=== PATIENT | female | born 2000 | race Caucasian/White ===

== ENCOUNTER 2019-09-08 15:26 | Outpatient (REF) | payer BC, SELFPAY ==
[2019-09-09 14:30] LABS: Chlamydia Result Negative (Negative)
[2019-09-09 16:23] LABS: GC Result Negative (Negative)
== END 2019-09-08 15:46 ==
LOC: LBN 15:26
PROVIDERS: PCP Pediatrics; Visit Provider Nurse Practitioner Family
DX: Z11.3 Encounter for screening for infections with a predominantly sexual mode of transmission (principal); N89.8 Other specified noninflammatory disorders of vagina
CPT/HCPCS: 87491; 87591

== ENCOUNTER 2019-09-10 15:56 | Outpatient (REF) | payer BC, SELFPAY ==
[2019-09-13 14:45] LABS: HSV 1 DNA Result Positive (Negative)
[2019-09-13 15:22] LABS: HSV 2 DNA Result Negative (Negative)
== END 2019-09-10 16:16 ==
LOC: LBN 15:56
PROVIDERS: PCP Pediatrics; Visit Provider Nurse Practitioner Pediatrics
DX: N89.8 Other specified noninflammatory disorders of vagina (principal)
CPT/HCPCS: 87529; 87480; 87510; 87660

== ENCOUNTER 2020-05-03 02:53 | Outpatient (CLI) | payer BC, SELFPAY ==
[2020-05-03 09:51] LABS: Bilirubin Negative (Negative); Blood Negative (Negative); Clarity Clear (Clear); Glucose Negative (Negative); Ketones Negative (Negative); Leukocyte Esterase Negative (Negative); Nitrite Negative (Negative); Specific Gravity 1.015 (1.005-1.025); Urobilinogen 0.2 EU/dL (Up TO 0.2)
[2020-05-03 10:36] LABS: ALT 29 U/L (14-59); AST 16 U/L (15-37); Albumin 3.8 g/dL (3.4-5.0); Alkaline Phosphatase 61 U/L (46-116); Anion Gap 10.1 mmol/L (3-11); BUN 8 mg/dL (7-18); Bilirubin, Total 0.5 mg/dL (0.2-1.0); CO2 26.9 mmol/L (21.0-32.0); CREATININE 0.87 mg/dL (0.55-1.02); Calcium 8.9 mg/dL (8.5-10.1); Chloride 105 mmol/L (98-107); Glucose 78 mg/dL (74-106); Potassium 4.3 mmol/L (3.5-5.1); Sodium 142 mmol/L (136-145); Total Protein 6.8 g/dL (6.4-8.2)
[2020-05-03 10:40] LABS: Creatinine,Urine < 13.0 mg/dL
[2020-05-04 08:36] LABS: Calcium (Random Urine) 1.1 mg/dL (See Note)
[2020-05-05 09:28] LABS: Antistrep-O Titer 158 IU/mL (0 - 530)
== END 2020-05-03 03:13 ==
PROVIDERS: PCP Pediatrics; Visit Provider Nurse Practitioner Pediatrics
DX: R31.9 Hematuria, unspecified (principal)
CPT/HCPCS: 36415; 80053; 81003; 82340; 82565; 86060

== ENCOUNTER 2020-09-21 13:45 | Outpatient (REF) | payer BC, SELFPAY ==
--- NOTE | 2020-09-21 13:00 | PAPFT_PTH ---
PATIENT: Kristofer Sadler LOC: [facility] U#:[id number] AGE/SX: 20/F ROOM: RE09/21/[address]: MARIA VICTORIA Miguel : 2000 BED: DIS: 09/21/2020 SPEC #: [id number] RECD: 09/21/20 17:50 STATUS: LYDIA REQ #: [id number] LISA: 09/21/20 13:[address]: Marielos Workman DEPT: [facility] Cytology RECD BY: Jillian Ortiz ENTERED: 09/21/20 17:50 SP TYPE: PAPFT OTHR DR: Jermaine Wallis MD Tissues: 1 - CX/ENDOCX FOR PAP SMEARS Procedures: PAP THIN PREP/[facility] Screening Comments: [id number]
== END 2020-09-21 14:05 ==
LOC: LBN 13:45
PROVIDERS: PCP Pediatrics; Visit Provider Nurse Practitioner Family
DX: Z12.4 Encounter for screening for malignant neoplasm of cervix (principal)
CPT/HCPCS: 88142

== ENCOUNTER 2021-11-26 15:29 | Outpatient (REF) | payer BC, SELFPAY ==
--- NOTE | 2021-11-26 15:15 | PAPFT_PTH ---
PATIENT: Kristofer Sadler LOC: [facility] U#:[id number] AGE/SX: 21/F ROOM: RE11/26/[address]: MARIA VICTORIA Miguel : 2000 BED: DIS: 11/26/2021 SPEC #: [id number] RECD: 11/26/21 17:41 STATUS: LYDIA REJovana #: [id number] LISA: 11/26/21 15:[address]: Marielos Workman DEPT: [facility] Cytology RECD BY: Jillian Ortiz ENTERED: 11/26/21 17:41 SP TYPE: PAPFT SIENA DR: Unknown,Unknown Tissues: 1 - CX/ENDOCX FOR PAP SMEARS Procedures: PAP THIN PREP/[facility] Screening Comments: [id number]
== END 2021-11-26 15:30 | disposition home or self-care (01) ==
LOC: LBN 15:29
PROVIDERS: Visit Provider Nurse Practitioner Family
DX: Z12.4 Encounter for screening for malignant neoplasm of cervix (principal)
CPT/HCPCS: 88142

== ENCOUNTER 2022-05-17 18:57 | Outpatient (REF) | payer BC, SELFPAY | END 2022-05-17 18:58 | disposition home or self-care (01) | LOC: LBN 18:57 | PROVIDERS: Visit Provider Physician Assistant | DX: R30.9 Painful micturition, unspecified (principal) | CPT/HCPCS: 87077; 87086; 87186 ==

== ENCOUNTER 2025-03-08 15:58 | Outpatient (REF) | payer BC, SELFPAY | END 2025-03-08 15:59 | disposition home or self-care (01) | LOC: LBN 15:58 | PROVIDERS: Visit Provider Obstetrics & Gynecology | DX: Z12.4 Encounter for screening for malignant neoplasm of cervix (principal) | CPT/HCPCS: 88142 ==

== ENCOUNTER 2025-04-05 14:13 | Outpatient (CLI) | payer BC, SELFPAY ==
[2025-04-05 14:24] LABS: HCT 42.0 % (36.0-46.0); HGB 14.2 g/dL (11.2-15.7); MCH 29.4 pg (27.0-33.0); MCHC 33.8 % (32.0-36.0); MCV 87 fL (80-95); MPV 9.8 fL (8.0-11.0); Platelet Count 305 10^3/uL (130-400); RBC 4.83 10^6/uL (3.93-5.22); RDW 13.6 % (11.7-14.6); RDW-SD 43.4 fL; WBC 11.53 10^3/uL (4.4-10.8)
[2025-04-05 15:49] LABS: TSH (W/Ref FT4) 0.71 uIU/mL (0.36-3.74)
[2025-04-05 22:49] LABS: FSH 5.3 mIU/mL (See Note)
[2025-04-09 19:20] LABS: Estradiol, Mass Spectrometry 97 pg/mL
[2025-04-18 13:02] LABS: Testosterone, Free 1.16 ng/dL (<0.13-1.06)
== END 2025-04-05 14:14 | disposition home or self-care (01) ==
PROVIDERS: Visit Provider Obstetrics & Gynecology
DX: E28.2 Polycystic ovarian syndrome (principal); Z3A.28 28 weeks gestation of pregnancy
CPT/HCPCS: 36415; 84402; 84403; 85027; 82670; 82679; 83001; 84443